=== PATIENT | male | born 1985 | race Caucasian/White ===

== ENCOUNTER 2023-01-08 18:23 | Emergency (ER) | payer MEDICAID ==
[~2023-01-08] VITALS: Ht 182.9 cm; Wt 63.5 kg
--- NOTE | 2023-01-08 19:05 | NUR ---
RECEIVED PT 37 YRS MALE CAME FROM HOME C/O HEADA AND NECK PAIN FOR 4 DAYS NO WEEKNESS
--- NOTE | 2023-01-08 19:27 | NUR ---
HAND OFF TORREY GRIJALVA
[2023-01-08] MEDS ORDERED: CARI350T PO (19:59)
--- NOTE | 2023-01-08 20:12 | NUR ---
Patient discharged to home in stable condition. RX Written and verbal after care instructions given. Patient verbalizes understanding of instruction.
[2023-01-08 21:20] VITALS: BP 133/88
== END 2023-01-08 21:20 | disposition home or self-care (01) ==
LOC: ER 18:38
DX: R51.9 Headache, unspecified (principal)
CPT/HCPCS: 70450-TC; 72125-TC

== ENCOUNTER 2023-01-15 16:29 | Emergency (ER) | payer MEDICAID ==
[~2023-01-15] VITALS: Ht 188 cm; Wt 62.6 kg
[~2023-01-15 16:29] MED LIST: CARI350T PO
[2023-01-15 16:39] VITALS: BP 116/67
--- NOTE | 2023-01-15 16:40 | NUR ---
Pt walked into the ER for headache since dec 30.
--- NOTE | 2023-01-15 16:45 | NUR ---
at bedside for eval.
[2023-01-15] MEDS ORDERED: RIME75TA PO (17:09)
--- NOTE | 2023-01-15 17:17 | NUR ---
Patient discharged to home in stable condition. Written and verbal after care instructions given. Patient verbalizes understanding of instruction.
== END 2023-01-15 17:18 | disposition home or self-care (01) ==
LOC: ER 16:32
DX: G43.909 Migraine, unspecified, not intractable, without status migrainosus (principal); Z79.899 Other long term (current) drug therapy

== ENCOUNTER 2023-04-07 12:46 | Emergency (ER) | payer MEDICAID ==
[~2023-04-07] VITALS: Ht 182.9 cm; Wt 65.8 kg
[~2023-04-07 12:46] MED LIST changes: +RIME75TA PO
[2023-04-07 14:29] VITALS: BP 118/84
[2023-04-07] MEDS ORDERED: CYCLOBENZAPRINE 10 MG TABLET PO ONE (15:00)
[2023-04-07] MEDS ORDERED: KETOROLAC TROMETHAMINE INJ 60 MG/2 ML VIAL IM ONE (15:00)
[2023-04-07] MEDS ORDERED: KETOROLAC TROMETHAMINE INJ 30 MG/ML VIAL ONE (15:04)
[2023-04-07] MEDS ORDERED: CYCLOBENZAPRINE 10 MG TABLET ONE (15:04)
[2023-04-07] MEDS ORDERED: CYCL5TAB PO (15:16)
== END 2023-04-07 16:04 | disposition home or self-care (01) ==
LOC: ER 12:51
DX: M54.50 Low back pain, unspecified (principal); Z60.2 Problems related to living alone; Z79.899 Other long term (current) drug therapy
CPT/HCPCS: 99283; 96372; J1885; J7040; A4223; J7030